=== PATIENT | male | born 1950 | race Caucasian/White ===

== ENCOUNTER → 2017-06-15 | Outpatient (REF) | payer MEDICARE ==
[~2017-06-15] MED LIST: FERR325T3 PO; OXYC1TAB23 PO
[2017-06-15 19:38] LABS: PERCENT SATURATION 6.9 % (19.7-50.0)
[2017-06-16 08:31] LABS: CARCINOEMBRYONIC ANTIGEN 85.9 NG/ML (<2.5)
== END ==
LOC: M LAB REF 16:50
PROVIDERS: ATTEND Internal Medicine Medical Oncology
DX: C18.9 Malignant neoplasm of colon, unspecified (principal)

== ENCOUNTER → 2017-06-23 | Outpatient (CLI) | payer MEDICARE ==
--- NOTE | 2017-06-24 09:08 | RADONC ---
RADIATION ONCOLOGY CONSULTATION NOTE DATE: 06/23/2017 CHART NUMBER: [id number] DIAGNOSIS: Rectal cancer advanced/unresectable. ECOG PERFORMANCE STATUS: 1. CONSULTATION NOTE: Mr. 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 HISTORY OF PRESENT ILLNESS: The patient apparently never goes to doctors and has had a long history of bowel difficulties. He finally was seen by Dr. Alcocer who on 05/21/2017 undertook an exploratory laparotomy, diverting loop colostomy, fecal disimpaction, drainage of mesenteric abdominal abscess, biopsy of mesenteric mass, and flexible sigmoidoscopy and biopsy. At the time of surgery, a large 10 cm stool ball was found in the mid transverse colon. There was noted to be a large pelvic cancer which was fixed. It was not possible to resect it at that time and a diverting colostomy was undertaken. It was chosen to be positioned in the distal transverse colon so that a potential low anterior resection to be undertaken in the future if the tumor responded to radiation and chemo. The patient has done fairly well since surgery, although he continues to feel weak and has been unable to sleep. He reports that he is quite anxious. PAST MEDICAL HISTORY: The patient's past medical history is noncontributory. He does not go to physicians. ALLERGIES: The patient has no known drug allergies. SOCIAL HISTORY: The patient quit smoking in 1969. He had smoked one pack of cigarettes per day for 6 years. He does not abuse alcohol. FAMILY HISTORY: The patient's family history is positive for mother of stomach cancer. REVIEW OF SYSTEMS: The patient's review of systems is positive for continued weight loss, anorexia and weakness. He denies nausea, vomiting, fevers, chills, night sweats, diplopia, rectal bleeding, shortness of breath, bone pain, or neurological problems. PHYSICAL EXAMINATION: The patient is a well-developed, well-nourished male in no acute distress. HEENT exam is normocephalic, atraumatic. Extraocular movements are intact. There is no palpable cervical, supraclavicular, infraclavicular, axillary, or inguinal lymphadenopathy present. Lungs are clear to auscultation and percussion. Heart has a regular rate and rhythm. Abdomen is benign with no hepatosplenomegaly, masses, or tenderness. Skeletal examination reveals no tenderness to pressure or percussion of the bony skeleton. Extremities reveal no clubbing, cyanosis, or edema. Neurologic exam is grossly intact, as is the remainder of the physical examination. ASSESSMENT: The patient is presenting today apparently in quite a bit of denial. He claims nobody told him he had cancer. He went on to say that the idea of radiation or chemo scares him and he does not wish to think about them. I did have a very lengthy discussion with this patient and his family lasting almost an hour. We discussed the potential benefits as well as possible acute and chronic sequelae of external beam radiation therapy. We discussed the goals of treatment and the philosophy of treatment. He is terrified of future surgery, but I have made him aware that radiation alone would not be curative. I also made him aware that radiation with chemo alone would also not be curative in this case. I believe I was able to answer most of this patient's and family's questions by the completion of our consultation. Clearly, the patient is undecided as to what he should do at this point. He has not committed to any treatment at the present time. He will think about it however. I let the patient know we will be here for him in either case. I will keep his chart open and should he decide on radiation, we would be more than glad to initiate the treatment planning process and coordinate his care overall. If he should decide just to be followed for periodic workup and scanning and potential future palliative treatment that would be possible as well and we would be available to him for that. In the meantime, however, he does not wish anything set up and so we have not set up any new appointment. Thank you for allowing us to participate in the care of this gentleman. I hope we can be of some benefit to him in the future. If I could provide you with any information, please feel free to contact me at anytime. As always warm regards. cc: Jacquie Batista MD, FACP MD QUE Kennedy
== END ==
LOC: M ONCR 10:24
PROVIDERS: ATTEND Radiology Radiation Oncology
DX: C20 Malignant neoplasm of rectum (principal); Z87.891 Personal history of nicotine dependence; Z80.0 Family history of malignant neoplasm of digestive organs

== ENCOUNTER 2017-07-07 10:37 | Outpatient (RCR) | payer MEDICARE, MEDICAID ==
--- NOTE | 2017-07-08 06:22 | RADONC ---
RADIATION ONCOLOGY SIMULATION NOTE DATE: 07/07/2017 CHART NUMBER: [id number] Mr. Reilly was taken to the CT scan for CT simulation of his rectal field. CT was accomplished without difficulty or discomfort. Radiation treatment planning is underway and radiation treatments will begin subsequently. An immobilization device was created without difficulty or discomfort. It will be used throughout the course of treatment. I was physically present throughout the course of CT simulation.
== END 2017-07-09 ==
LOC: M ONCR 10:37
PROVIDERS: ATTEND Radiology Radiation Oncology
DX: C20 Malignant neoplasm of rectum (principal)

== ENCOUNTER → 2017-07-07 | Outpatient (CLI) | payer MEDICARE | LOC: M RAD 10:24 | PROVIDERS: ATTEND Radiology Radiation Oncology | DX: C20 Malignant neoplasm of rectum (principal) ==

== ENCOUNTER 2017-07-10 14:25 | Outpatient (RCR) | payer MEDICARE ==
--- NOTE | 2017-08-07 10:42 | RADONC ---
RADIATION ONCOLOGY SIMULATION NOTE: DATE: 08/06/2017 CHART NUMBER: [id number]. SIMULATION NOTE: Mr. Reilly was taken to the CT scan for CT simulation of his rectal field. CT was accomplished without difficulty or discomfort. Radiation treatment planning is underway and radiation treatments will begin subsequently. The immobilization device we previously created we have now reused and will be used throughout the course of treatment. I was physically present throughout the course of CT simulation. Mr. Reilly had been originally simulated on 07/07/2017 and then decided he did not want treatment. He let his capone fade away and now we are resimming him. Since his last simulation however, he has met with medical oncology and has decided to take Xeloda oral chemotherapy throughout the course of treatment.
== END 2017-08-08 ==
LOC: M ONCR 14:25
PROVIDERS: ATTEND Radiology Radiation Oncology
DX: C20 Malignant neoplasm of rectum (principal)

== ENCOUNTER → 2017-07-27 | Outpatient (REF) | payer MEDICARE ==
[2017-07-27 18:12] LABS: INR 1.05
== END ==
LOC: M LAB REF 17:09
PROVIDERS: ATTEND Internal Medicine Medical Oncology
DX: C20 Malignant neoplasm of rectum (principal)

== ENCOUNTER → 2017-08-06 | Outpatient (CLI) | payer MEDICARE | LOC: M RAD 14:12 | PROVIDERS: ATTEND Radiology Radiation Oncology | DX: C20 Malignant neoplasm of rectum (principal) ==

== ENCOUNTER → 2017-08-11 | Outpatient (CLI) | payer MEDICARE ==
[~2017-08-11] MED LIST changes: +GASTROGRAFIN SOLUTION 30ML (Q9963) As Ordered ONE; +ISOVUE-370 76% 100ML VIAL (Q9967) As Ordered ONE
--- NOTE | 2017-08-11 10:56 | REP ---
CT of the abdomen and pelvis without and with IV contrast including multiphase imaging after IV contrast. Study also includes bowel contrast. Comparison is 2016. There has been interim left lower quadrant colostomy. The colon proximal to the colostomy is distended with fecal residue measuring up to 7 cm in diameter. This may represent stricture at the colostomy. There is a large soft tissue mass in the rectosigmoid area measuring up to 8 cm in diameter with induration of the pericolonic fat planes adjacent to this mass. There is no femoral, iliac or periaortic adenopathy. There is no ascites. There is no adenopathy in the cass hepatis. There are two round low density lesions anteriorly in the left lobe of the liver, not definitely present previously on the outside CT performed on 05/20/2017 , one measuring 11 mm and the other 6 mm. The hepatic parenchyma is otherwise homogeneous. The gallbladder, pancreas and spleen are unremarkable. The adrenals, kidneys and abdominal aorta are unremarkable. There is no small bowel distension. There are no lytic, blastic or destructive skeletal changes. There is degenerative disc disease in the lumbar spine. Impression: There is an 8 cm rectosigmoid mass with induration in the adjacent pelvic fat planes. There is a left lower quadrant colostomy. The colon proximal to the colostomy is distended with fecal residue suggesting there may be a stricture at the colostomy. There is no ascites or adenopathy. There are two small low density lesions anteriorly in the left lobe of the liver, not definitely present on the prior CT. These could be cysts or hepatic metastases. The liver is otherwise unremarkable. No retroperitoneal or mesenteric adenopathy is identified. Signed by Will Garner MD 08/11/2017 10:47 A
== END ==
LOC: M RAD 07:56
PROVIDERS: ATTEND Internal Medicine Medical Oncology
DX: C20 Malignant neoplasm of rectum (principal)
CPT/HCPCS: 74178; Q9963; Q9967

== ENCOUNTER → 2017-08-13 | Outpatient (REF) | payer MEDICARE, MEDICAID ==
[~2017-08-13] MED LIST changes: -GASTROGRAFIN SOLUTION 30ML (Q9963) As Ordered ONE; -ISOVUE-370 76% 100ML VIAL (Q9967) As Ordered ONE
== END ==
LOC: M LAB REF 17:58
PROVIDERS: ATTEND Internal Medicine Medical Oncology
DX: C20 Malignant neoplasm of rectum (principal)

== ENCOUNTER → 2017-08-25 | Outpatient (CLI) | payer MEDICARE ==
--- NOTE | 2017-08-30 09:18 | REP ---
Whole body PET CT scan: Studies performed for staging of rectal carcinoma. There are no comparison PET CT scans. However, there is a comparison CT scan dated 08/11/2017. Whole body PET CT scan is performed from skull base to the upper thighs. Neck and supraclavicular areas: There are no hypermetabolic foci. There is artifactual uptake in the vocal cords. Chest: There is a 1 cm pleural-based nodule posteriorly in the lower lobe of the left. This demonstrates borderline hypermetabolic uptake with a maximal standard uptake value of 2.5. Abdomen, pelvis and upper thighs: There is a large hypermetabolic mass posteriorly in the pelvis corresponding to the mass on the comparison CT with the maximal standard uptake value of 17.2. There are no other hypermetabolic foci. The two hypodense lesions in the left lobe of the liver identified on the comparison CT that was performed with IV contrast demonstrate no radialabeling. They are not visible on the CT accompanying the PET scan that was performed without IV contrast. On the CT scan accompanying the PET scan, the colon proximal to the colostomy is not quite as distended as t on the comparison CT scan. Impression: The patient's known pelvic mass demonstrates hypermetabolic uptake. There is borderline uptake in the right lower lobe lung nodule. There are no other hypermetabolic foci. The study is performed with 10 mCi of F 18 FDG. Signed by Will Garner MD 08/30/2017 09:04 A
== END ==
LOC: M PLARAD 10:32
PROVIDERS: ATTEND Internal Medicine Medical Oncology
DX: C20 Malignant neoplasm of rectum (principal)
CPT/HCPCS: 78815; A9552

== ENCOUNTER 2017-08-28 13:40 | Outpatient (CLI) | payer MEDICARE ==
[~2017-08-28] VITALS: Ht 176.5 cm; Wt 55.5 kg
[~2017-08-28 13:40] MED LIST changes: +ACETAMINOPHEN TAB 650MG DOSE (2X325MG) PO SCH; -FERR325T3 PO; -OXYC1TAB23 PO; +diphenhydrAMINE 25 MG CAP PO SCH
[2017-08-28 13:50] VITALS: BP 107/69
[2017-08-28] MEDS ORDERED: FERR325T3 PO (13:54)
[2017-08-28] MEDS ORDERED: OXYC1TAB23 PO (13:54)
[2017-08-28 14:50] VITALS: BP 108/66
[2017-08-28 16:15] VITALS: BP 108/70
[2017-08-28 18:20] VITALS: BP 102/65
== END 2017-08-28 19:25 | disposition home or self-care (01) ==
LOC: M OPCLIPED 13:40 → M OPCLI4PV 13:40 → M PED 13:45 → M OPCLIPED 19:25
PROVIDERS: ATTEND Internal Medicine Medical Oncology
DX: D64.9 Anemia, unspecified (principal); C20 Malignant neoplasm of rectum; Z79.899 Other long term (current) drug therapy
CPT/HCPCS: 36430; 82378; 86850; 86900; 86901; 86920; P9016

== ENCOUNTER → 2017-08-28 | Outpatient (REF) | payer MEDICARE | LOC: M LAB REF 12:47 | PROVIDERS: ATTEND Internal Medicine Medical Oncology | DX: C18.9 Malignant neoplasm of colon, unspecified (principal) ==

== ENCOUNTER 2017-09-09 15:11 | Outpatient (RCR) | payer MEDICARE ==
[~2017-09-09 15:11] MED LIST changes: -ACETAMINOPHEN TAB 650MG DOSE (2X325MG) PO SCH; +FERR325T3 PO; +OXYC1TAB23 PO; -diphenhydrAMINE 25 MG CAP PO SCH
--- NOTE | 2017-09-16 10:48 | RADONC ---
RADIATION ONCOLOGY PROGRESS NOTE DATE: 09/14/2017 CHART NUMBER: PROGRESS NOTE: Mr. Reilly is thus far at a dose of 1260 cGy to his rectum and has received seven fractions. His last treatment was on 09/11/2017. The patient did not come in for treatment today. I did receive a phone call from one of his other physicians saying that the patient was there again complaining of rectal pain as well as some anal discharge. He has to told that physician that he has not been taking any of his chemotherapy pills. After my phone call with that physician, he called here and cancelled his appointment to our office. I fail to understand reasons why this patient would decide not to take his chemotherapy pills. He has been made aware of the consequences thereof. I have had multiple, multiple, multiple lengthy discussions with him as has my nurse, the nurse navigator, the medical oncologists as well as the medical oncology nurses. Indeed this patient has been a topic of discussion. He is aware of the very advanced nature of his disease and he is aware that it is progressing and growing without treatment. He has also been made aware that the discomfort is most likely from the malignancy itself beginning to cause pain as it becomes more advanced. The mucus discharge from his remaining rectum was present before radiation started and is totally expected. I do not understand why he is attributing this to his radiation. In summary, radiation will continue if the patient so desires. At this point, our likelihood of achieving anything significant with regard to long-term control is compromised. We will encourage him as much as possible to be compliant with the remainder of his treatments.
--- NOTE | 2017-09-22 08:46 | RADONC ---
RADIATION ONCOLOGY PROGRESS NOTE DATE: 09/21/2017 CHART NUMBER: [id number] Mr. Reilly is thus far at a dose of 1980 cGy to his pelvis and was last treated on 09/18/2017. Once again, the patient came in today with a whole slew of questions. He reports that he is greatly concerned that the radiation is damaging his bladder and other organs. He wanted a guarantee that there would be absolutely no chance of any damage to any organs if he were to continue with radiation. He is once again complaining of pain, difficulty urinating, as well as, mucus discharge through his anus and the feeling of burning around his anus. He believes these are all from the radiation. He does report that he felt better over the weekend without treatment. The patient's skin on physical exam shows no evidence of radiation change present. There is no moist or dry desquamation. The remainder of his physical exam remains unchanged. Once again, we have had a very, very, very lengthy discussion with this patient. At this point, I am not convinced that he even wishes to continue with radiation. We can of course not guarantee that he would have no side effects from this treatment. At the end of our conversation, I have recommended that he consider hospice. We have decided and the patient has agreed to take 1 week off from treatment and see if these symptoms continue. I have tried to reassure him that he is at a very low-dose of radiation at this point and that most of these symptoms are secondary to his surgery and malignancy. Clearly, his rectum is open and discharge was going on before the treatment started. In addition, the lower abdominal discomfort was going on before the radiation started and may be secondary to his advanced malignancy. Once again, in summary, the patient will take off this week and monitor how he is doing. If indeed all his discomfort and problems clear up, the patient will decide whether or not he even wishes to continue with treatment. If the symptoms continue, then he may be more convinced that they are not from the radiation or at least not solely from the radiation and he may be more willing to continue with therapy at that point. Once again, we will see this patient again on Thursday to reevaluate his overall situation. I have given the patient information about hospice and I have instructed him it may be benavides to contact them as well. QUE
--- NOTE | 2017-09-30 10:38 | RADONC ---
RADIATION ONCOLOGY DATE: 09/09/2017 CHART NUMBER: [id number] DIAGNOSIS: Rectal cancer. STAGE: Advanced/unresectable. ECOG PERFORMANCE STATUS: 1. TREATMENT SUMMARY: Mr. Reilly is a 66-year-old white male with the diagnosis of very locally advanced, moderately differentiated adenocarcinoma of the rectum who presented to us for consideration of preoperative radiation therapy combined with chemotherapy as a therapeutic option. We treated the patient to his rectum for a total dose of 1980 cGy delivered in 11 fractions of 180 cGy each over 16 elapsed days from 09/02/2017 through 09/18/2017. The patient's rectum was treated on a linear accelerator utilizing an 18 MV photon beam. 3-D conformal therapy with posterior left to right lateral mayen was utilized. Mr. Reilly came in this morning saying that he has decided he does not wish to undertake any further treatments. I have made him aware of the risks of discontinuing therapy. At the patient's request, he is being discharged from our treatment schedule, as well as our followup at this time. I will keep the patient's chart open in case he changes his mind over the next few days. He has been going back and forth throughout the course of this treatment, largely unconvinced that he wants radiation at all. cc: MD Ezequiel Costello MD
== END 2017-10-08 ==
LOC: M ONCR 15:11
PROVIDERS: ATTEND Radiology Radiation Oncology
DX: C20 Malignant neoplasm of rectum (principal)

== ENCOUNTER → 2017-09-16 | Outpatient (REF) | payer MEDICARE | LOC: M LAB REF 17:31 | PROVIDERS: ATTEND Internal Medicine Medical Oncology | DX: C20 Malignant neoplasm of rectum (principal) ==

== ENCOUNTER → 2017-10-14 | Outpatient (REF) | payer MEDICARE ==
[2017-10-14 17:33] LABS: INR 0.96
== END ==
LOC: M LAB REF 16:40
PROVIDERS: ATTEND Internal Medicine Medical Oncology
DX: C20 Malignant neoplasm of rectum (principal); Z79.899 Other long term (current) drug therapy

== ENCOUNTER → 2017-10-22 | Outpatient (CLI) | payer MEDICARE ==
[~2017-10-22] MED LIST changes: +LIDOCAINE 2% MDV 20 ML VIAL As Ordered ONE; +ceFAZolin 1GM INJ (J0690 PER 500MG) As Ordered ONE
--- NOTE | 2017-10-29 06:21 | REPIR ---
DATE OF PROCEDURE: 10/22/2017 PREPROCEDURE DIAGNOSIS: Rectal cancer requiring access for chemotherapy. POSTPROCEDURE DIAGNOSIS: Rectal cancer requiring access for chemotherapy. PROCEDURE: Ultrasound and fluoroscopic guided right internal jugular vein Port-a-Cath placement with a Bard port. SURGEON: Dr. Jenniffer Begum PHARMACEUTICAL LABORATORY TECHNICIAN: Wong Tejada. ANESTHESIA: Local with 20 mL and 2% lidocaine. FLUORO TIME: 0.2 minutes. CONTRAST: None. PREOPERATIVE ANTIBIOTICS: 1 gram of Ancef. COMPLICATIONS: None. DRAINS: None. SPECIMENS: None. IMPLANTS: Right internal jugular vein central venous tunnel catheter and port. INDICATION: The patient is a 66-year-old male with rectal cancer who requires access for chemotherapy and will undergo placement of a right possible left internal jugular vein Port-a-Cath. Risks, benefits and alternative treatment options were discussed with the patient. DESCRIPTION OF PROCEDURE: The patient was taken to the angiography suite and placed supine on the angiography room table and then prepped and draped in a standard surgical fashion. The right internal jugular vein was evaluated with ultrasound and noted to be widely patent, easily compressible and free of thrombus. Ultrasound was then used to guide cannulation of the right internal jugular vein with a micropuncture needle after anesthetizing the overlying skin with 2% lidocaine with concurrent real-time ultrasound visualization of the entry of the needle into the right internal jugular vein with hard copy image preserved. The right internal jugular vein needle was then cannulated with a micropuncture wire which was upsized to a micropuncture sheath. The Bentson wire was advanced to the micropuncture sheath. A pocket was created subcutaneously in the right chest through an incision in the right chest through an incision in the right chest after anesthetizing the overlying skin with 2% lidocaine. The catheter was tunneled from the subcutaneous pocket to the entry sight in the right internal jugular vein. The right internal jugular vein was then sequentially dilated under fluoroscopic guidance and the introducer sheath positioned. The catheter was advanced through the introducer sheath, which was peeled away and remove and the catheter was positioned under fluoroscopic guidance with the tip in the superior vena cava right atrial junction. The catheter was then cut to length and attached to the port and placed in the subcutaneous pocket. The catheter was accessed, noted to flush and aspirate easily and then the incision in the chest was closed using #2-0 Vicryl in inverted interrupted fashion. The puncture wound in the right neck was closed using #4-0 Monocryl in inverted interrupted fashion. Steri-Strips and dressings were applied. The patient tolerated the procedure well. All instrument, sponge and needle counts were correct at the end of the case. There were no complications. Dr. Begum was present for and directed the entire case. The patient was transferred to the holding area and subsequently discharged in stable condition. The Port-a-Cath is stable for use with dialysis access. RADIOLOGIC SUPERVISION INTERPRETATION: The ultrasound showed the right internal jugular vein to be easily compressible, widely patent and free of thrombus. Ultrasound was used to guide cannulation of the right internal jugular vein with real-time concurrent visualization of the entry of the needle into the right internal jugular vein with a hard copy image preserved. The right internal jugular vein was then sequentially dilated under fluoroscopic guidance. The catheter was positioned under fluoroscopic guidance with the tip in the superior vena cava right atrial junction. Final fluoroscopic image showed the catheter to be in good position and good alignment with a tip in the superior vena cava right atrial junction with no pneumothorax or hemothorax noted.
== END | disposition home or self-care (01) ==
LOC: M IRPRO 10:10
PROVIDERS: ATTEND Internal Medicine Medical Oncology
DX: C20 Malignant neoplasm of rectum (principal)
CPT/HCPCS: 36561; 76937; 77001; C1788; C1894; J0690

== ENCOUNTER 2018-01-22 13:55 | Emergency (ER) | payer MEDICARE ==
[2018-01-22 15:23] LABS: BASO % 0.2 % (0.0-1.0); HEMATOCRIT 28.3 % (42.0-52.0); HEMOGLOBIN 9.4 g/dl (14.0-18.0); IMMATURE GRANULOCYTE % 0.3 % (0-3.0); LYMPH # 0.4 10^3/uL (1.5-4.5); LYMPH % 4.2 % (24.0-44.0); MEAN CORPUSCULAR HEMOGLOBIN 27.8 pg (27.0-33.0); MEAN CORPUSCULAR HGB CONC 33.2 g/dl (32.0-36.5); MEAN CORPUSCULAR VOLUME 83.7 fl (80.0-96.0); MONO # 0.2 10^3/uL (0.0-0.8); MONO % 2.4 % (0.0-5.0); NEUTROPHILS # 8.4 10^3/uL (1.8-7.7); NEUTROPHILS % 92.9 % (36.0-66.0); PLATELET COUNT, AUTOMATED 208 10^3/uL (150-450); RED BLOOD COUNT 3.38 10^6/uL (4.30-6.10); RED CELL DISTRIBUTION WIDTH 19.6 % (11.5-14.5)
[2018-01-22 15:40] LABS: ANION GAP 6 MEQ/L (8-16); BLOOD UREA NITROGEN 18 MG/DL (7-18); CALCIUM LEVEL 8.8 MG/DL (8.8-10.2); CARBON DIOXIDE LEVEL 29 MEQ/L (21-32); CHLORIDE LEVEL 95 MEQ/L (98-107); CREATININE FOR GFR 0.65 MG/DL (0.70-1.30); GLOMERULAR FILTRATION RATE > 60.0 (>49); GLUCOSE, FASTING 91 MG/DL (70-100); POTASSIUM SERUM 3.2 MEQ/L (3.5-5.1); SODIUM LEVEL 130 MEQ/L (136-145)
[2018-01-22] MEDS ORDERED: ISOVUE-370 76% 100ML VIAL (Q9967) As Ordered (15:42)
== END 2018-01-22 16:52 | disposition home or self-care (01) ==
LOC: M ED 13:55
DX: K94.09 Other complications of colostomy (principal); C18.9 Malignant neoplasm of colon, unspecified; Z87.891 Personal history of nicotine dependence; Z79.899 Other long term (current) drug therapy
CPT/HCPCS: Q9967